=== PATIENT | female | born 1990 | race Caucasian/White ===

== ENCOUNTER 2019-02-05 08:45 | Emergency (ER) | payer BC ==
[2019-02-05] MEDS: DIPHTH/TET/ACEL PERTUSS (ADULT) 0.5 ML VIAL IM* (09:21)
[2019-02-05] MEDS: LIDOCAINE 1% (MPF) 5 ML VIAL INJ (09:21)
== END 2019-02-05 09:47 | disposition home or self-care (01) ==
LOC: FTE 08:45
DX: S01.81XA Laceration without foreign body of other part of head, initial encounter (principal); W50.0XXA Accidental hit or strike by another person, initial encounter; Y92.9 Unspecified place or not applicable; Z23 Encounter for immunization
CPT/HCPCS: 12002; 90471; 90715; 99283-25

== ENCOUNTER 2019-02-13 07:29 | Emergency (ER) | payer BC | END 2019-02-13 08:16 | disposition home or self-care (01) | LOC: FTE 07:29 | DX: Z48.02 Encounter for removal of sutures (principal) | CPT/HCPCS: 99281 ==